=== PATIENT | female | born 2000 | race Caucasian/White ===

== ENCOUNTER 2020-09-30 21:40 | Emergency (ER) | payer BC ==
[~2020-09-30] VITALS: Ht 157.5 cm; Wt 133.8 kg
[~2020-09-30 21:40] MED LIST: BACTRIM DS TAB1 EACH PO; ESTRACE0.5 MG PO; METFORMIN HCL500 MG PO; PREDNISONE 10 M10 MG PO; TRAMADOL 50 MG50 MG PO
[2020-09-30 21:49] VITALS: BP 138/95
== END 2020-09-30 22:15 | disposition home or self-care (01) ==
LOC: M.ERS 21:40
DX: L50.9 Urticaria, unspecified (principal); T78.49XA Other allergy, initial encounter; E66.01 Morbid (severe) obesity due to excess calories; Z68.43 Body mass index [BMI] 50.0-59.9, adult; Z90.89 Acquired absence of other organs; Z88.8 Allergy status to other drugs, medicaments and biological substances; Z91.018 Allergy to other foods; X58.XXXA Exposure to other specified factors, initial encounter